=== PATIENT | female | born 1960 | race Caucasian/White ===

== ENCOUNTER 2016-09-17 20:03 | Emergency (ER) | payer OTHER ==
[~2016-09-17 20:03] MED LIST: PARO10TA PO
[2016-09-17 20:06] VITALS: BP 154/87; PULSE 96; RESP 20; TEMP 100; O2SAT 94
--- NOTE | 2016-09-17 20:20 | PD ---
HPI Chief Complaint: Cold / Flu Symptoms Time Seen by Provider: 20:20 Travel History International Travel<30 days: No Contact w/Intl Traveler<30days: No Traveled to known affect area: No History of Present Illness HPI 55 year old female present to the ED for evaluation of 3 day history of cough, sore throat. Endorses 8/10 throat pain, endorses difficulties swallowing food. Patient states that the cough keeps her up at night. Endorses chills, occasional wheezing today. She denies ear pain, sinus congestion, rhinorrhea, abdominal pain, nausea, vomiting. Patient is a current smoker. Shes been treating with dhix-gly-ssbbkze medications with no improvement in symptoms. PFSH Past Medical History Depression: Yes High Cholesterol: Yes Diminished Hearing: No Hypertension: Yes Past Surgical History Genitourinary Surgery: Yes (kidney stone) Social History Alcohol Use: No Tobacco Use: Yes (1 ppd) Allergies-Medications (Allergen,Severity, Reaction): Coded Allergies: No Known Allergies (Unverified , 09/17/16) Reported Meds & Prescriptions Reported Meds & Active Scripts Active Lidocaine Viscous Liq 2 % Liqd 5 Ml SWISH-SWAL DAILY PRN Medrol Dosepak (Methylprednisolone) 4 Mg Dspk 4 Mg PO DIRECTED Per Pharmacist direction Amoxicillin 500 Mg Tab 500 Mg PO BID 10 Days Reported Paxil (Paroxetine HCl) 10 Mg Tab 30 Mg PO DAILY Review of Systems Except as stated in HPI: all other systems reviewed are Neg Physical Exam Narrative GENERAL: Well-nourished, well-developed obese white female in no acute distress. SKIN: Warm and dry. HEAD: Normocephalic. Atraumatic. EYES: No scleral icterus. No injection or drainage. PERRLA. EOMI. ENT: Pearly [place] tympanic membranes bilaterally. Nasal mucosa is moist. Oropharynx moderately erythematous with 2+ tonsils bilaterally. No edema or exudate. Uvula midline. Airway patent. NECK: Supple, trachea midline. No JVD. ++ Bilateral anterior cervical lymphadenopathy. CARDIOVASCULAR: Regular rate and rhythm without murmurs, gallops, or rubs. 2+ DP and radial pulses bilaterally. RESPIRATORY: Breath sounds equal bilaterally. Diffuse expiratory wheezing in bilateral lung schulz. No accessory muscle use. GASTROINTESTINAL: Abdomen soft, non-tender, nondistended. + Bowel sounds MUSCULOSKELETAL: No cyanosis, or edema. Patient is ambulatory and is observed to walk with a normal gait. BACK: Nontender without obvious deformity. No CVA tenderness. Data Data Last Documented VS Vital Signs Date Time Temp Pulse Resp B/P Pulse Ox O2 Delivery O2 Flow Rate FiO2 09/17/16 20:06 100.0 96 20 154/87 94 Orders Group A Rapid Strep Screen (09/17/16 20:26) Albuterol Neb (Albuterol Neb) (09/17/16 20:30) Dexamethasone Inj (Decadron Inj) (09/17/16 20:30) Amoxicillin (Trimox) (09/17/16 20:30) Acetaminophen (Tylenol) (09/17/16 20:30) Strep Culture (Group A) (09/17/16 20:15) MDM Medical Decision Making Medical Screen Exam Complete: Yes Emergency Medical Condition: Yes Differential Diagnosis Pharyngitis versus strep pharyngitis versus influenza versus upper respiratory infection versus other Narrative Course 55 year old female present to the ED for evaluation of 3 day history of cough, sore throat. Endorses 8/10 throat pain, endorses difficulties swallowing food. Patient states that the cough keeps her up at night. Endorses chills, occasional wheezing today. She denies ear pain, sinus congestion, rhinorrhea, abdominal pain, nausea, vomiting. Patient is a current smoker. Vitals reviewed. Physical exam reveals an obese white female in no acute distress. There is moderate posterior oropharyngeal erythema and 2+ tonsils bilaterally. Uvula midline. Airway patent. There is bilateral anterior cervical lymphadenopathy and diffuse expiratory wheezing in bilateral lung schulz. Many physical exam is otherwise unremarkable. Patient was administered by mouth Tylenol and 500 mg amoxicillin. She was also administered IM Decadron and albuterol breathing treatments 2. Recheck of the patient reveals subjective improvement of her breathing as well as improved lung sounds. This is URI and pharyngitis. Patient was prescribed amoxicillin 500 mg twice a day 10 days, viscous lidocaine when necessary throat pain and stepped down Medrol Dosepak. She is instructed take all medication as prescribed, stop smoking, follow up with a primary care provider. She indicated understanding of instructions and was amenable to plan of care. Stable, discharged home. Diagnosis Primary Impression: Upper respiratory infection Qualified Code: J06.9 - Upper respiratory tract infection, unspecified type Additional Impression: Pharyngitis Qualified Code: J02.9 - Pharyngitis, unspecified etiology Referrals: Primary Care Physician Patient Instructions: General Instructions, Pharyngitis (ED), Upper Respiratory Infection (ED) Additional Instructions: Rest, hydrate. STOP SMOKING! Push fluids such as sports drinks, Pedialyte, popsicles, clear broth. Take antibiotics as prescribed, even if her symptoms resolve. Began taking steroids tomorrow as prescribed. Magic mouthwash every 4-6 hours as needed for throat pain. Motrin or Tylenol every 4-6 hours as needed for pain and fever. Follow-up with the primary care provider this week. Return to the ED for any urgent or emergent medical condition. Med/Other Pt SpecificInfo: Prescription(s) given Scripts Lidocaine Viscous Liq 2 % Liqd5 Ml SWISH-SWAL DAILY PRN (PAIN) #1 BOTTLE Ref 0 Prov:Amada Diamond DO 09/17/16 Methylprednisolone Dosepak (Medrol Dosepak)4 Mg Dspk4 Mg PO DIRECTED #1 DSPK Ref 0 Per Pharmacist direction Prov:Amada Diamond DO 09/17/16 Amoxicillin 500 Mg [id number] Mg PO BID 10 Days Ref 0 Prov:Amada Diamond DO 09/17/16 Disposition: 01 DISCHARGE HOME Condition: Stable Aura Pina Sep 17, 2016 20:20
[2016-09-17] MEDS ORDERED: ACETAMINOPHEN 325 MG TAB PO ONE (20:30)
[2016-09-17] MEDS ORDERED: AMOXICILLIN (TRIHYDRATE) 500 MG CAP PO ONE (20:30)
[2016-09-17] MEDS ORDERED: DEXAMETHASONE SOD PHOS 4 MG/ML VIAL IM ONE (20:30)
[2016-09-17] MEDS ORDERED: AMOX500T PO (20:36)
[2016-09-17] MEDS ORDERED: LIDO1SOL8 SWISH-SWAL (20:36)
[2016-09-17] MEDS ORDERED: MEDR4PAK PO (20:36)
[2016-09-17] MEDS: RESP: ALBUTEROL 2.5 MG/3 ML NEB (SCH) INH (20:46)
== END 2016-09-17 21:08 | disposition home or self-care (01) ==
LOC: PHEFT 20:03
DX: J06.9 Acute upper respiratory infection, unspecified (principal); J02.9 Acute pharyngitis, unspecified; E78.00 Pure hypercholesterolemia, unspecified; I10 Essential (primary) hypertension; F41.9 Anxiety disorder, unspecified
CPT/HCPCS: 87081; 87880; 94640; 94664; 96372; 99283; J1100; J7613

== ENCOUNTER 2016-09-19 05:15 | Emergency (ER) | payer OTHER ==
[~2016-09-19] VITALS: Ht 160 cm; Wt 123.4 kg
[~2016-09-19 05:15] MED LIST changes: +AMOX500T PO; +LIDO1SOL8 SWISH-SWAL; +MEDR4PAK PO
[2016-09-19 05:24] VITALS: BP 137/86; PULSE 96; RESP 20; TEMP 98.3; O2SAT 93
[2016-09-19] MEDS ORDERED: SODIUM CHLORIDE 0.9% FLUSH 5 ML FLUSH IVF PRN (06:30)
[2016-09-19] MEDS ORDERED: PAXI40TA PO (06:42)
[2016-09-19] MEDS ORDERED: AMLO10TA2 PO (06:42)
[2016-09-19 06:51] VITALS: BP 131/70; PULSE 69; RESP 20; O2SAT 98
[2016-09-19] MEDS: RESP: ALBUTEROL 2.5 MG/IPRATROPIUM 0.5 MG NEB (SCH) INH ×2 (06:51→07:03)
[2016-09-19 06:53] VITALS: O2SAT 96
[2016-09-19] MEDS ORDERED: BENZ100 PO (06:56)
[2016-09-19] MEDS ORDERED: ALBU0.08 NEB (06:56)
--- NOTE | 2016-09-19 06:56 | PD ---
HPI Chief Complaint: Cold / Flu Symptoms Time Seen by Provider: 06:14 Travel History International Travel<30 days: No Contact w/Intl Traveler<30days: No Traveled to known affect area: No History of Present Illness HPI 55-year-old female arrives complaining of severe coughing spell. She was seen here last night and here she received 2 rounds of breathing treatments, Decadron , amoxicillin and a lidocaine swish and swallow. She has no albuterol at home or nebulizer solution that she is going to use without physician discretion. No fever. PFSH Past Medical History Depression: Yes High Cholesterol: Yes Diminished Hearing: No Hypertension: Yes ?: Not LMP: 08/29/16 Past Surgical History Genitourinary Surgery: Yes (kidney stone) Social History Alcohol Use: No Tobacco Use: Yes (2 packs per week) Substance Use: No Allergies-Medications (Allergen,Severity, Reaction): Coded Allergies: No Known Allergies (Unverified , 09/17/16) Reported Meds & Prescriptions Reported Meds & Active Scripts Active Lidocaine Viscous Liq 2 % Liqd 5 Ml SWISH-SWAL DAILY PRN Medrol Dosepak (Methylprednisolone) 4 Mg Dspk 4 Mg PO DIRECTED Per Pharmacist direction Amoxicillin 500 Mg Tab 500 Mg PO BID 10 Days Reported Amlodipine (Amlodipine Besylate) 10 Mg Tab 10 Mg PO DAILY Paxil (Paroxetine HCl) 40 Mg Tab 30 Mg PO DAILY Review of Systems General / Constitutional: No: Fever, Chills HENT: Positive: Sore Throat Respiratory: Positive: Cough Physical Exam Narrative GENERAL: 55-year-old female pleasant well-nourished well-developed no acute distress SKIN: Warm and dry. HEAD: Atraumatic. Normocephalic. EYES: Pupils equal and round. No scleral icterus. No injection or drainage. ENT: No nasal bleeding or discharge. Mucous membranes pink and moist. NECK: Trachea midline. No JVD. CARDIOVASCULAR: Regular rate and rhythm. No murmur appreciated. RESPIRATORY: Coarse breath sounds in the right side. No significant dyspnea. GASTROINTESTINAL: Abdomen soft, non-tender, nondistended. Hepatic and splenic margins not palpable. MUSCULOSKELETAL: No obvious deformities. No clubbing. No cyanosis. No edema. NEUROLOGICAL: Awake and alert. No obvious cranial nerve deficits. Motor grossly within normal limits. Normal speech. PSYCHIATRIC: Appropriate mood and affect; insight and judgment normal. Data Data Last Documented VS Vital Signs Date Time Temp Pulse Resp B/P Pulse Ox O2 Delivery O2 Flow Rate FiO2 09/19/16 06:31 20 09/19/16 05:24 98.3 96 137/86 93 Orders Ecg Monitoring (09/19/16 06:30) Oximetry (09/19/16 06:30) Sodium Chloride 0.9% Flush (Ns Flush) (09/19/16 06:30) Albuterol-Ipratropium Neb (Duoneb Neb) (09/19/16 06:30) MDM Medical Decision Making Medical Screen Exam Complete: Yes Emergency Medical Condition: Yes Medical Record Reviewed: Yes Differential Diagnosis Bronchitis, pneumonia, asthma, pharyngitis Narrative Course Breathing treatments given. We will send the patient home with albuterol inhaler as well as albuterol solution. Leann Castillo also prescribed. We'll switch amoxicillin to azithromycin. Diagnosis Primary Impression: Cough Referrals: DR BENAVIDES 2 days Additional Instructions: You have a choice when it comes to health care, and we are glad that you chose [facility]. Hopefully, we have met your expectations on today's visit. You are welcome to return to [facility] at any time, as we are committed to meeting the health care needs of our community. Med/Other Pt SpecificInfo: Prescription(s) given Scripts Benzonatate (Tessalon Perldilia)100 Mg Oax082 Mg PO TID PRN (COUGH) #30 CAP Ref 0 Prov:Duane Lima MD 09/19/16 Albuterol Neb 2.5 Mg/3 Ml Neb2.5 Mg NEB TID NEB PRN (SHORTNESS OF BREATH) #60 NEBULE Ref 0 Prov:Duane Lima MD 09/19/16 Disposition: 01 DISCHARGE HOME Condition: Stable Duane Lima MD Sep 19, 2016 06:56
[2016-09-19] MEDS ORDERED: ALBUTEROL SULFATE 90 MCG/ACT HFA 8 GM INHALER INH ONE (07:00)
[2016-09-19 07:35] VITALS: BP 119/73; PULSE 87; RESP 18; O2SAT 96
== END 2016-09-19 07:49 | disposition home or self-care (01) ==
LOC: PHED 05:15
DX: R05 Cough (principal); E78.00 Pure hypercholesterolemia, unspecified; I10 Essential (primary) hypertension; F17.210 Nicotine dependence, cigarettes, uncomplicated
CPT/HCPCS: 94640; 94664; 99284